=== PATIENT | male | born 1940 | race Caucasian/White ===

== ENCOUNTER 2018-11-29 08:43 | Emergency (ER) | payer BC ==
[~2018-11-29] VITALS: Ht 190.5 cm; Wt 108.3 kg
[2018-11-29 08:53] VITALS: BP 155/67; PULSE 70; RESP 18; Ht 190.5 cm; Wt 108.3 kg
[2018-11-29] MEDS ORDERED: ACETAMINOPHEN 500 MG TAB PO STA (09:22)
--- NOTE | 2018-11-29 09:27 | ERD ---
ER Documentation Chief Complaint Chief Complaint left shoulder pain s/p fall , decrease range of motion HPI Patient is a 78-year-old male with past medical history of hyperlipidemia presents the ER for concerns of left shoulder pain after fall. Patient states 3 days ago he was at the grocery walking out when he was reading a sign. Patient states he was not paying attention. Patient states he hit the sliding door and then fell. Patient states he injured his nasal bridge on the door. Patient states his left shoulder was "sore" however over the last few days bruising has increased. Patient does take blood thinners. Patient states his been taking ibuprofen for pain. Patient denies any head injury, nausea, vomiting, acute confusion, excessive sleepiness or loss of consciousness. Patient denies any dizziness or lightheadedness prior to fall injury. Patient denies any chest pain or shortness of breath. Patient does not recall last tetanus vaccine. Patient is right-hand dominant. ROS All systems reviewed and are negative except as per history of present illness. Allergies Allergies: Coded Allergies: No Known Allergy (Unverified , 11/29/18) PMhx/Soc Medical and Surgical Hx: pt denies Surgical Hx Anesthesia Reaction: No Hx Psychiatric Problems: No Hx Miscellaneous Medical Probl: No Hx Alcohol Use: Yes (occasionally) Hx Substance Use: No Hx Tobacco Use: No Smoking Status: Never smoker FmHx Family History: No diabetes Physical Exam Vitals Vital Signs Date Temp Pulse Resp B/P (MAP) Pulse Ox O2 O2 Flow FiO2 Time Delivery Rate 11/29/18 98.1 70 18 155/67 97 08:53 (96) Physical Exam GENERAL: Well-developed, well-nourished male. Appears in no acute distress. Speaking in full sentences. HEAD: Normocephalic, atraumatic. EYES: Pupils are equally reactive bilaterally. EOMs grossly intact. No conjunctival erythema. ENT: Moist mucous membranes. No uvula deviation. No kissing tonsils. No septal hematoma. Nasal bridge is nontender to palpation. 1 cm dry, scabbed over laceration noted to the nasal bridge. NECK: Supple. No meningismus. Normal range of motion of the neck. LUNG: Clear to auscultation bilaterally. No rhonchi, wheezing, rales or coarse breath sounds. HEART: Regular rate and rhythm. No murmurs, rubs or gallops. BACK: No midline tenderness. EXTREMITIES: Equal pulses bilaterally. No peripheral clubbing, cyanosis or edema. No unilateral leg swelling. NEUROLOGIC: Alert and oriented. Moving all four extremities without any difficulty. Normal speech. Steady gait. SKIN: Normal color. Warm and dry. No rashes or lesions. LUE: No obvious deformity. Ecchymosis noted throughout the left upper inner arm. Skin is intact. Decreased range of motion of the shoulder secondary to pain. Tender to palpation of the mid humerus. Nontender to palpation of the forearm. Sensation intact to light touch. Neurovascularly intact. (Able to give thumbs up, make an ok sign, cross digits 2 and 3, thumb to pinky opposition. 2+ RP.) No snuffbox tenderness. Results 24 hrs Current Medications Medications Dose Sig/Payton Start Time Status Last (Trade) Ordered Route PRN Stop Time Admin Dose Reason Admin 1,000 mg ONCE STAT 11/29/18 DC 11/29/18 Acetaminophen PO 09:22 09:39 (Tylenol 11/29/18 09:24 Tab) Diphtheria/ 0.5 ml ONCE ONCE 11/29/18 DC 11/29/18 Tetanus/Acell IM* 09:30 09:39 Pertussis 11/29/18 09:31 (Adacel) Procedures/MDM ED COURSE: The patient was stable throughout ED course. I kept the patient and/or family informed of laboratory and diagnostic imaging results throughout the ED course. Patient: ANAY BEDOLLA : 1940 Age: 78 Sex: M MR #: [id number] DOS: 11/29/18921 Ordering MD: ABIGAIL BEASLEY PA-C Location: [facility] Room/Bed: PROCEDURE: XR left humerus CLINICAL INDICATION: Left arm pain, fall TECHNIQUE: 3 images of the left humerus COMPARISON: None available FINDINGS: There is an acute minimally-displaced surgical neck fracture of the proximal humerus that likely involves the greater tuberosity. There is no glenohumeral dislocation. 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 The visualized left lung is clear. IMPRESSION: 1. Acute minimally displaced surgical neck fracture of the proximal humerus as above. RPTAT: UU .Keyshawn Rutherford MD, Date Time Electronically viewed and signed by .Keyshawn Rutherford MD, MD on 11/29/2018 10:52 .K/ CC: ABIGAIL BEASLEY PA-C [id number] SPLINT APPLICATION: The patient was verbally consented at bedside prior to splint application. Bryan murphy was explained the risks, benefits and alternatives to this procedure. The patient was neurovascularly intact prior to and status post application of the splint. The patient tolerated the procedure well with no complications. Splint type: Left shoulder immobilizer Extremity: left arm Indication: Acute minimally displaced surgical neck fracture of the proximal humerus as above. MEDICATIONS GIVEN: Tylenol, Tdap Patient tolerated medication well with no adverse reactions. Patient reported improvement in pain. MEDICAL DECISION MAKING: Patient is a 78-year-old male who presents the ER for concerns of left shoulder pain after fall injury. Patient denies any head injuries or loss of consciousness. Vital signs were reviewed. Patient is afebrile. Patient was not hypoxic. Patient was hemodynamically stable. Patient also had a laceration to his nasal bridge. Affected wound site was cleansed. Appears to be healing well. X-ray imaging showed concerns of left surgical neck humerus fracture. Patient was placed in a shoulder immobilizer and advised to follow-up with an family support specialist. Patient advised to remain in immobilizer at all times. Referral provided. Low suspicion for shoulder dislocation, compartment syndrome, neurovascular injury. Patient was nontoxic, [id number] prior to discharge. PRESCRIPTION: Tylenol, tramadol Patient advised not to take tramadol driving or operating any machinery. DISCHARGE: At this time, patient is stable for discharge and outpatient management. I have instructed the patient to follow-up with his/her primary care physician in 1-2 days. I have discussed with the patient the possibility of needing to see a specialist for further workup and imaging studies if symptoms persist. I have instructed the patient to promptly return to the ER for any new or worsening symptoms including increased pain, fever, nausea, vomiting, weakness or LOC. The patient and/or family expressed understanding of and agreement with this plan. All questions were answered. Home care instructions were provided. Disclaimer: Inadvertent spelling and grammatical errors are likely due to EHR/dictation software use and do not reflect on the overall quality of patient care. Also, please note that the electronic time recorded on this note does not necessarily reflect the actual time of the patient encounter. Departure Diagnosis: Primary Impression: Humeral surgical neck fracture Encounter type: initial encounter Fracture type: closed Fracture morphology: unspecified fracture morphology Fracture alignment: nondisplaced Laterality: unspecified laterality Qualified Codes: S42.216A - Unspecified nondisplaced fracture of surgical neck of unspecified humerus, initial encounter for closed fracture Additional Impressions: Ecchymosis Fall Encounter type: initial encounter Qualified Codes: W19.XXXA - Unspecified fall, initial encounter Condition: Fair Patient Instructions: Shoulder Problems, Fall, Mechanical Referrals: [facility] Additional Instructions: Call your primary care doctor TOMORROW for an appointment during the next 1-2 days.See the doctor sooner or return here if your condition worsens before your appointment time. ABIGAIL BEASLEY PA-C November 29, 2018 09:27
[2018-11-29] MEDS ORDERED: DIPHTH/TET/ACEL PERTUSS (ADULT) 0.5 ML VIAL IM* ONE (09:30)
[2018-11-29] MEDS ORDERED: TRAM50TA2 PO (11:05)
[2018-11-29] MEDS ORDERED: ACET500C5 PO (11:05)
== END 2018-11-29 11:38 | disposition home or self-care (01) ==
LOC: FTE 08:43
DX: S42.212A Unspecified displaced fracture of surgical neck of left humerus, initial encounter for closed fracture (principal); S40.022A Contusion of left upper arm, initial encounter; S01.21XA Laceration without foreign body of nose, initial encounter; W01.198A Fall on same level from slipping, tripping and stumbling with subsequent striking against other object, initial encounter; Y92.9 Unspecified place or not applicable; Z23 Encounter for immunization
CPT/HCPCS: 73030; 73060; 90471; 90715